=== PATIENT | female | born 1990 | race African-American/Black ===

== ENCOUNTER 2017-09-29 07:26 | Inpatient (IN) ==
[2017-09-29] MEDS ORDERED: TERBUTALINE 1 MG/1 ML VIAL SUBCUT ONE (08:59)
[2017-09-29] MEDS ORDERED: LACTATED RINGERS 1,000 ML IV SCH (09:00)
[2017-09-29 09:42] LABS: Apearance,Urine CLEAR (Clear); Bilirubin,Urine Negative (Negative); Blood, Urine Negative (Negative); Glucose,Urine (UA) Negative (Negative); Ketones,Urine Negative (Negative); Mucus,Urine Occasional /LPF (Occasional); Nitrite,Urine Negative (Negative); Protein,Urine 30 MG/DL; RBC,Urine 1 /HPF (0-4); Squamous Epithelial Cell,Urine Occasional /HPF (0-10); Urine Color Yellow (Yellow); WBC,Urine 1 /HPF (0-6)
[2017-09-29] MEDS ORDERED: MAGNESIUM SULF RIDER 100 ML IV ONE (10:21)
[2017-09-29] MEDS ORDERED: CALCIUM GLUCONATE 1,000 MG in SODIUM CHLORIDE 0.9% 100 ML IV PRN (10:21)
[2017-09-29 10:51] LABS: Basophils % 0.3 % (0.0-0.8); Eosinophils % 0.1 % (0.00-10.9); Hematocrit 31.7 VOL% (35.7-47.0); Immature Granulocytes % 0.4 %; Immature Granulocytes Absolute 0.04 #; Lymphocytes # 1.7 10*3/uL (1.4-4.0); Lymphocytes % 17.7 % (21.3-54.2); Mean Corpuscular HGB Conc 31.5 GM/DL (32-36); Mean Corpuscular Hemoglobin 23 PG (27-34); Mean Corpuscular Volume 74.2 FL (87-102); Mean Platelet Volume 12.3 FL (9.6-12.0); Monocytes # 0.6 10*3/uL (0.11-0.8); Monocytes % 6.2 % (1.7-12.7); Neutrophils # 7.3 10*3/uL (1.4-7.4); Neutrophils % 75.3 % (38.7-73.9); Platelet Count 173 T/CUMM (130-400); Red Blood Count 4.27 MC/CUMM (3.8-5.5); Red Cell Distribution Width 14.6 % (9.3-17.3); White Blood Count 9.6 T/CUMM (4-12)
[2017-09-29] MEDS: BETAMETH SODIUM PHOS/ACETATE 30 MG/5 ML VIAL IM SCH (11:14)
[2017-09-29 11:19] LABS: Alanine Aminotransferase 12 U/L (13-56); Albumin 2.4 G/DL (3.4-5.0); Alkaline Phosphatase 92 U/L (45-117); Aspartate Amino Transferase 11 U/L (0-37); Bilirubin,Total < 0.39 MG/DL (0.2-1.0); Blood Urea Nitrogen 8 MG/DL (7-18); Calcium 7.6 MG/DL (8.5-10.1); Glucose 80 MG/DL (74-106); Osmolality,Calculated 271.7 MOS/KG (273-304); Potassium 3.7 MMOL/L (3.5-5.1); Sodium 138 MMOL/L (136-145); Total Protein 5.9 G/DL (6.4-8.3)
[2017-09-29] MEDS: LACTATED RINGERS 1,000 ML IV SCH (11:30)
[2017-09-29] MEDS: AMPICILLIN INJ 2,000 MG in SODIUM CHLORIDE 0.9% 100 ML IV SCH ×3 (11:36→23:38)
[2017-09-29] MEDS: MAGNESIUM SULF DRIP 40 GM/1,000 ML ML IV SCH (11:43)
[2017-09-29 18:07] LABS: Apearance,Urine CLEAR (Clear); Bacteria,Urine Occasional /HPF (Few); Bilirubin,Urine Negative (Negative); Blood, Urine Negative (Negative); Glucose,Urine (UA) Negative (Negative); Ketones,Urine 5 mg/dL (Negative); Mucus,Urine Occasional /LPF (Occasional); Nitrite,Urine Negative (Negative); Protein,Urine Negative; RBC,Urine <1 /HPF (0-4); Squamous Epithelial Cell,Urine Occasional /HPF (0-10); Urine Color Straw (Yellow); Urine Specific Gravity 1.012 (1.001-1.035); Urine Urobilinogen < 2.0 EU/DL (0.2-1.0); WBC,Urine <1 /HPF (0-6)
[2017-09-29] MEDS ORDERED: BUTORPHANOL 1 MG/ML VIAL IV PRN (19:32)
[2017-09-29] MEDS ORDERED: ONDANSETRON 4 MG/2 ML VIAL IV PRN (19:33)
[2017-09-30] MEDS: LACTATED RINGERS 1,000 ML IV SCH ×2 (03:10→20:00)
[2017-09-30] MEDS: AMPICILLIN INJ 2,000 MG in SODIUM CHLORIDE 0.9% 100 ML IV SCH ×2 (05:15→10:39)
[2017-09-30] MEDS: MAGNESIUM SULF DRIP 40 GM/1,000 ML ML IV SCH (07:33)
[2017-09-30] MEDS: BETAMETH SODIUM PHOS/ACETATE 30 MG/5 ML VIAL IM SCH (11:29)
[2017-09-30] MEDS: NIFEdipine 10 MG CAPSULE PO SCH ×2 (16:50→22:29)
[2017-09-30] MEDS ORDERED: ACETAMINOPHEN 325 MG TABLET PO PRN (19:43)
[2017-10-01] MEDS: NIFEdipine 10 MG CAPSULE PO SCH (04:03)
[2017-10-01] MEDS: LACTATED RINGERS 1,000 ML IV SCH (04:04)
[2017-10-01 09:29] VITALS: BP 126/83
== END 2017-10-01 09:50 | disposition home or self-care (01) | DRG 563 ==
LOC: N.LDOUT 07:26 → N.LD 07:28 → N.OB 09-30 17:23
PROVIDERS: ADMIT Specialist; ATTEND Specialist

== ENCOUNTER 2017-10-06 06:15 | Inpatient (IN) ==
[2017-10-06 07:11] LABS: Apearance,Urine Slightly Hazy (Clear); Bilirubin,Urine Negative (Negative); Blood, Urine Negative (Negative); Glucose,Urine (UA) Negative (Negative); Ketones,Urine Negative (Negative); Mucus,Urine Occasional /LPF (Occasional); Nitrite,Urine Negative (Negative); Protein,Urine 100 MG/DL; RBC,Urine 2 /HPF (0-4); Squamous Epithelial Cell,Urine Occasional /HPF (0-10); Urine Color Yellow (Yellow); Urine Specific Gravity 1.019 (1.001-1.035); Urine Urobilinogen < 2.0 EU/DL (0.2-1.0); WBC,Urine 7 /HPF (0-6)
[2017-10-06] MEDS: NIFEdipine 10 MG CAPSULE PO SCH ×4 (09:17→17:15)
[2017-10-06] MEDS ORDERED: LACTATED RINGERS 500 ML IV PRN (13:25)
[2017-10-06] MEDS ORDERED: BUTORPHANOL 2 MG/ML VIAL IV PRN (13:25)
[2017-10-06] MEDS ORDERED: MEPERIDINE 50 MG/1 ML VIAL IV PRN (13:25)
[2017-10-06] MEDS ORDERED: ONDANSETRON 4 MG/2 ML VIAL IV PRN (13:25)
[2017-10-06] MEDS ORDERED: AMPICILLIN INJ 2,000 MG in SODIUM CHLORIDE 0.9% 100 ML IV ONE (13:31)
[2017-10-06] MEDS: LACTATED RINGERS 1,000 ML IV SCH ×2 (13:45→22:20)
[2017-10-06 13:52] LABS: Basophils % 0.3 % (0.0-0.8); Eosinophils % 0.1 % (0.00-10.9); Hematocrit 33.8 VOL% (35.7-47.0); Hemoglobin 11.3 GM/DL (12.0-16.0); Immature Granulocytes % 0.6 %; Immature Granulocytes Absolute 0.08 #; Lymphocytes # 2.3 10*3/uL (1.4-4.0); Lymphocytes % 15.9 % (21.3-54.2); Mean Corpuscular HGB Conc 33.4 GM/DL (32-36); Mean Corpuscular Hemoglobin 23 PG (27-34); Mean Corpuscular Volume 69.8 FL (87-102); Monocytes # 0.9 10*3/uL (0.11-0.8); Monocytes % 6.1 % (1.7-12.7); Neutrophils # 11.2 10*3/uL (1.4-7.4); Platelet Count 212 T/CUMM (130-400); Red Blood Count 4.84 MC/CUMM (3.8-5.5); Red Cell Distribution Width 14.7 % (9.3-17.3); White Blood Count 14.5 T/CUMM (4-12)
[2017-10-06 14:03] LABS: INR 0.9; PT Patient Result 9.4 SECS; Partial Thromboplastin Time 28.3 SECS (0-40)
[2017-10-06 14:14] LABS: Albumin 2.6 G/DL (3.4-5.0); Bilirubin,Total 0.4 MG/DL (0.2-1.0); Calcium 8.2 MG/DL (8.5-10.1); Osmolality,Calculated 269.1 MOS/KG (273-304); Potassium 3.9 MMOL/L (3.5-5.1); Total Protein 6.6 G/DL (6.4-8.3); Uric Acid 5.6 MG/DL (2.6-6.0)
[2017-10-06] MEDS: AMPICILLIN INJ 1,000 MG in SODIUM CHLORIDE 0.9% 100 ML IV SCH ×2 (17:16→20:45)
[2017-10-06] MEDS ORDERED: NIFEdipine 10 MG CAPSULE PO SCH (21:00)
[2017-10-06] MEDS ORDERED: CITRIC ACID/SODIUM CITRATE 30 ML UDCUP PO ONE (23:33)
[2017-10-06] MEDS ORDERED: FAMOTIDINE 20 MG/2 ML VIAL IV ONE (23:34)
[2017-10-06] MEDS ORDERED: ePHEDrine 50 MG/ML AMP IV ONE (23:34)
[2017-10-06] MEDS ORDERED: LIDOCAINE 1% 50 ML VIAL ONE (23:43)
[2017-10-06] MEDS ORDERED: METHYLERGONOVINE 0.2 MG/1 ML AMP ONE (23:44)
[2017-10-06] MEDS ORDERED: miSOPROStol 200 MCG TABLET ONE (23:44)
[2017-10-06] MEDS ORDERED: OXYTOCIN/LR 20 UNIT/1,000 ML BAG IV ONE (23:44)
[2017-10-06] MEDS ORDERED: fentaNYL 2 MCG/ROPIV 0.2% EPID 150 ML EPIDURAL SCH (23:45)
[2017-10-06] MEDS ORDERED: TRANEXAMIC ACID 1,000 MG/10 ML VIAL ONE (23:52)
[2017-10-07] MEDS ORDERED: HYDROCORTISONE 2.5% RECTAL CREAM 30 GM TUBE TOP PRN (00:06)
[2017-10-07] MEDS ORDERED: OXYTOCIN/LR 20 UNIT/1,000 ML BAG IV ONE ×2 (00:06→01:18)
[2017-10-07] MEDS ORDERED: ACETAMINOPHEN 325 MG TABLET PO PRN (00:06)
[2017-10-07] MEDS ORDERED: DIPH/TET/ACEL PERT BOOSTER VACCINE 0.5 ML VIAL IM ONE (00:06)
[2017-10-07] MEDS ORDERED: BISACODYL 10 MG SUPP RECTAL PRN (00:06)
[2017-10-07] MEDS ORDERED: ONDANSETRON 4 MG/2 ML VIAL IV PRN (00:06)
[2017-10-07] MEDS ORDERED: WITCH HAZEL PADS 100/JAR TOP PRN (00:06)
[2017-10-07] MEDS ORDERED: RHO(D) IMMUNE GLOBULIN 300 MCG SYRINGE IM ONE (00:06)
[2017-10-07] MEDS ORDERED: BENZOCAINE 20%/MENTHOL 0.5% SPRAY 56 GM CAN TOP PRN (00:06)
[2017-10-07] MEDS ORDERED: LANOLIN 50% CREAM 0.3 OZ TUBE TOP PRN (00:06)
[2017-10-07] MEDS ORDERED: MEASLES/MUMPS/RUBELLA VACCINE 0.5 ML VIAL SUBCUT ONE (00:06)
[2017-10-07] MEDS ORDERED: miSOPROStol 200 MCG TABLET ONE (00:30)
[2017-10-07 04:57] LABS: Basophils # 0.1 10*3/uL (0.0-0.2); Basophils % 0.3 % (0.0-0.8); Eosinophils % 0.1 % (0.00-10.9); Hematocrit 29.8 VOL% (35.7-47.0); Immature Granulocytes % 0.5 %; Immature Granulocytes Absolute 0.09 #; Mean Corpuscular HGB Conc 33.6 GM/DL (32-36); Mean Corpuscular Hemoglobin 24 PG (27-34); Mean Corpuscular Volume 70.4 FL (87-102); Mean Platelet Volume 12.4 FL (9.6-12.0); Monocytes # 1.1 10*3/uL (0.11-0.8); Monocytes % 5.6 % (1.7-12.7); Neutrophils # 16.6 10*3/uL (1.4-7.4); Neutrophils % 83.5 % (38.7-73.9); Platelet Count 185 T/CUMM (130-400); Red Blood Count 4.23 MC/CUMM (3.8-5.5); Red Cell Distribution Width 14.7 % (9.3-17.3); White Blood Count 19.9 T/CUMM (4-12)
[2017-10-07] MEDS: IBUPROFEN 800 MG TABLET PO PRN (07:37)
[2017-10-07] MEDS: oxyCODONE/ACETAMINOPHEN 5-325 MG TABLET PO PRN ×3 (07:38→23:21)
[2017-10-07] MEDS: DOCUSATE SODIUM 100 MG CAPSULE PO SCH ×2 (09:10→21:44)
[2017-10-08] MEDS: oxyCODONE/ACETAMINOPHEN 5-325 MG TABLET PO PRN ×2 (09:45→15:42)
[2017-10-08] MEDS: DOCUSATE SODIUM 100 MG CAPSULE PO SCH ×2 (09:46→21:01)
[2017-10-08] MEDS: IBUPROFEN 800 MG TABLET PO PRN (15:42)
[2017-10-09] MEDS: IBUPROFEN 800 MG TABLET PO PRN (05:36)
[2017-10-09] MEDS: DOCUSATE SODIUM 100 MG CAPSULE PO SCH (08:38)
[2017-10-09 15:59] VITALS: BP 117/84
== END 2017-10-09 17:40 | disposition home or self-care (01) | DRG 560 ==
LOC: N.LDOUT 06:15 → N.LD 06:17 → N.OB 10-07 02:00
PROVIDERS: ADMIT Obstetrics & Gynecology; ATTEND Obstetrics & Gynecology

== ENCOUNTER 2018-12-19 05:23 | Inpatient (IN) ==
[2018-12-19] MEDS ORDERED: MEPERIDINE 50 MG/1 ML VIAL IV PRN (05:35)
[2018-12-19] MEDS ORDERED: ONDANSETRON 4 MG/2 ML VIAL IV PRN ×2 (05:35→08:58)
[2018-12-19] MEDS ORDERED: BUTORPHANOL 2 MG/ML VIAL IV PRN (05:35)
[2018-12-19] MEDS ORDERED: LACTATED RINGERS 1,000 ML IV SCH ×2 (06:00→08:00)
[2018-12-19] MEDS ORDERED: OXYTOCIN/LR 20 UNIT/1,000 ML BAG IV SCH (06:00)
[2018-12-19 06:14] LABS: Basophils % 0.3 % (0.0-0.8); Eosinophils % 0.3 % (0.00-10.9); Hematocrit 29.6 VOL% (35.7-47.0); Hemoglobin 8.8 GM/DL (12.0-16.0); Immature Granulocytes % 0.7 %; Immature Granulocytes Absolute 0.07 #; Lymphocytes % 19.9 % (21.3-54.2); Mean Corpuscular HGB Conc 29.7 GM/DL (32-36); Monocytes % 6.3 % (1.7-12.7); Neutrophils % 72.5 % (38.7-73.9); Platelet Count 246 T/CUMM (130-400); Red Blood Count 4.29 MC/CUMM (3.8-5.5); Red Cell Distribution Width 16.1 % (9.3-17.3); White Blood Count 10.1 T/CUMM (4-12)
[2018-12-19 06:25] LABS: Alanine Aminotransferase 10 U/L (13-56); Albumin 2.5 G/DL (3.4-5.0); Alkaline Phosphatase 86 U/L (45-117); Aspartate Amino Transferase 13 U/L (0-37); Bilirubin,Total < 0.39 MG/DL (0.2-1.0); Blood Urea Nitrogen 7 MG/DL (7-18); Calcium 8.3 MG/DL (8.5-10.1); Glucose 78 MG/DL (74-106); Osmolality,Calculated 273.5 MOS/KG (273-304); Total Protein 6.9 G/DL (6.4-8.3)
[2018-12-19 06:30] LABS: Hypochromasia 1+; Platelet Estimate Adequate
[2018-12-19] MEDS ORDERED: FAMOTIDINE 20 MG/2 ML VIAL IV ONE (07:41)
[2018-12-19] MEDS ORDERED: CITRIC ACID/SODIUM CITRATE 30 ML UDCUP PO ONE (07:41)
[2018-12-19] MEDS ORDERED: LACTATED RINGERS 1,000 ML IV ONE (07:41)
[2018-12-19] MEDS ORDERED: ePHEDrine 50 MG/ML AMP IV PRN (07:41)
[2018-12-19] MEDS ORDERED: NALOXONE 0.4 MG/ML VIAL IV PRN (07:42)
[2018-12-19] MEDS ORDERED: PROMETHAZINE 25 MG/1 ML VIAL IM ONE (07:42)
[2018-12-19] MEDS ORDERED: hydrOXYzine HCL 25 MG/1 ML VIAL IM PRN (07:42)
[2018-12-19] MEDS ORDERED: diphenhydrAMINE 50 MG/1 ML VIAL IV PRN ×2 (07:42)
[2018-12-19] MEDS ORDERED: fentaNYL 2 MCG/ROPIV 0.2% EPID 100 ML EPIDURAL SCH (08:00)
[2018-12-19] MEDS ORDERED: ACETAMINOPHEN 325 MG TABLET PO PRN (08:58)
[2018-12-19] MEDS ORDERED: RHO(D) IMMUNE GLOBULIN 300 MCG SYRINGE IM ONE (08:58)
[2018-12-19] MEDS ORDERED: BISACODYL 10 MG SUPP RECTAL PRN (08:58)
[2018-12-19] MEDS ORDERED: HYDROCORTISONE 2.5% RECTAL CREAM 30 GM TUBE TOP PRN (08:58)
[2018-12-19] MEDS ORDERED: WITCH HAZEL PADS 100/JAR TOP PRN (08:58)
[2018-12-19] MEDS ORDERED: LANOLIN 50% CREAM 0.3 OZ TUBE TOP PRN (08:58)
[2018-12-19] MEDS ORDERED: MEASLES/MUMPS/RUBELLA VACCINE 0.5 ML VIAL SUBCUT ONE (08:58)
[2018-12-19] MEDS ORDERED: OXYTOCIN/LR 20 UNIT/1,000 ML BAG IV ONE (08:58)
[2018-12-19] MEDS ORDERED: BENZOCAINE 20%/MENTHOL 0.5% SPRAY 56 GM CAN TOP PRN (08:58)
[2018-12-19] MEDS ORDERED: DIPH/TET/ACEL PERT BOOSTER VACCINE 0.5 ML VIAL IM ONE (08:58)
[2018-12-19] MEDS: IBUPROFEN 800 MG TABLET PO PRN (17:42)
[2018-12-19] MEDS: oxyCODONE/ACETAMINOPHEN 5-325 MG TABLET PO PRN (17:44)
[2018-12-19] MEDS: DOCUSATE SODIUM 100 MG CAPSULE PO SCH (20:40)
[2018-12-20] MEDS: IBUPROFEN 800 MG TABLET PO PRN (00:05)
[2018-12-20] MEDS: oxyCODONE/ACETAMINOPHEN 5-325 MG TABLET PO PRN ×2 (00:05→13:17)
[2018-12-20 05:26] LABS: Basophils % 0.4 % (0.0-0.8); Eosinophils # 0.1 10*3/uL (0.0-0.87); Eosinophils % 0.8 % (0.00-10.9); Hematocrit 25.6 VOL% (35.7-47.0); Hemoglobin 7.6 GM/DL (12.0-16.0); Immature Granulocytes % 0.6 %; Immature Granulocytes Absolute 0.06 #; Lymphocytes # 2.4 10*3/uL (1.4-4.0); Lymphocytes % 22.8 % (21.3-54.2); Mean Corpuscular HGB Conc 29.7 GM/DL (32-36); Mean Corpuscular Volume 69.2 FL (87-102); Mean Platelet Volume 12.5 FL (9.6-12.0); Monocytes % 6.7 % (1.7-12.7); Neutrophils % 68.7 % (38.7-73.9); Platelet Count 263 T/CUMM (130-400); Red Cell Distribution Width 15.9 % (9.3-17.3); White Blood Count 10.5 T/CUMM (4-12)
[2018-12-20 05:44] LABS: Hypochromasia 1+; Platelet Estimate Adequate
[2018-12-20] MEDS: DOCUSATE SODIUM 100 MG CAPSULE PO SCH ×2 (08:43→21:13)
[2018-12-20] MEDS: FERROUS SULFATE 325 MG TABLET PO SCH ×4 (08:43→21:13)
[2018-12-20] MEDS: PENICILLIN VK 500 MG TABLET PO SCH ×3 (10:14→19:11)
[2018-12-21] MEDS: PENICILLIN VK 500 MG TABLET PO SCH ×3 (06:15→12:15)
[2018-12-21 07:22] VITALS: BP 129/76
[2018-12-21] MEDS: DOCUSATE SODIUM 100 MG CAPSULE PO SCH (10:00)
[2018-12-21] MEDS: IBUPROFEN 800 MG TABLET PO PRN (10:00)
[2018-12-21] MEDS: FERROUS SULFATE 325 MG TABLET PO SCH (10:00)
[2018-12-21] MEDS: oxyCODONE/ACETAMINOPHEN 5-325 MG TABLET PO PRN (10:01)
== END 2018-12-21 15:05 | disposition home or self-care (01) | DRG 560 ==
LOC: N.LDOUT 05:23 → N.LD 05:26 → N.OB 11:47
PROVIDERS: ADMIT Specialist; ATTEND Specialist

== ENCOUNTER 2020-06-03 11:11 | Observation (INO) ==
[2020-06-03 11:50] LABS: Basophils % 0.4 % (0.0-0.8); Eosinophils % 0.6 % (0.00-10.9); Hematocrit 35.9 VOL% (35.7-47.0); Hemoglobin 11.2 GM/DL (12.0-16.0); Immature Granulocytes % 0.3 %; Immature Granulocytes Absolute 0.02 #; Lymphocytes # 1.9 10*3/uL (1.4-4.0); Lymphocytes % 27.3 % (21.3-54.2); Mean Corpuscular HGB Conc 31.2 GM/DL (32-36); Mean Corpuscular Volume 68.3 FL (87-102); Monocytes % 10.3 % (1.7-12.7); Neutrophils % 61.1 % (38.7-73.9); Platelet Count 256 T/CUMM (130-400); Red Blood Count 5.26 MC/CUMM (3.8-5.5); Red Cell Distribution Width 17.3 % (9.3-17.3); White Blood Count 7.1 T/CUMM (4-12)
[2020-06-03 12:10] LABS: Albumin 3.5 G/DL (3.4-5.0); Bilirubin,Total 0.5 MG/DL (0.2-1.0); Calcium 8.3 MG/DL (8.5-10.1); Osmolality,Calculated 273.7 MOS/KG (273-304); Potassium 3.9 MMOL/L (3.5-5.1); Total Protein 7.5 G/DL (6.4-8.3)
[2020-06-03 12:11] LABS: Band Neutrophils 13 % (0-10); Lymphocytes 27 % (20-55); Segmented Neutrophils 50 % (50-85); Total Cells Counted 100
[2020-06-03 12:12] LABS: Anisocytosis 1+; Hypochromasia Slight; Ovalocytes Few; Platelet Estimate Normal; Smudge Cells Few; Tear Drop Cells Few
[2020-06-03] MEDS ORDERED: ASPIRIN 325 MG TABLET PO STA (12:37)
[2020-06-03] MEDS ORDERED: DEXTROSE 50% 25 GM/50 ML VIAL IV PRN (14:47)
[2020-06-03] MEDS ORDERED: GLUCAGON 1 MG VIAL IM PRN (14:47)
[2020-06-03] MEDS ORDERED: ONDANSETRON 4 MG/2 ML VIAL IV PRN (14:47)
[2020-06-03] MEDS ORDERED: ACETAMINOPHEN 325 MG TABLET PO PRN (14:47)
[2020-06-03] MEDS: SODIUM CHLORIDE 0.45% 1,000 ML IV SCH (18:02)
[2020-06-03] MEDS: ENOXAPARIN 40 MG/0.4 ML SYRINGE SUBCUT SCH (18:02)
[2020-06-04 05:13] LABS: Basophils # 0.1 10*3/uL (0.0-0.2); Basophils % 1.2 % (0.0-0.8); Eosinophils # 0.1 10*3/uL (0.0-0.87); Hemoglobin 10.3 GM/DL (12.0-16.0); Immature Granulocytes % 0.3 %; Immature Granulocytes Absolute 0.02 #; Lymphocytes # 1.7 10*3/uL (1.4-4.0); Lymphocytes % 28.4 % (21.3-54.2); Mean Corpuscular HGB Conc 31.2 GM/DL (32-36); Mean Corpuscular Volume 68.5 FL (87-102); Monocytes % 14.7 % (1.7-12.7); Neutrophils % 53.4 % (38.7-73.9); Platelet Count 198 T/CUMM (130-400); Red Blood Count 4.82 MC/CUMM (3.8-5.5); Red Cell Distribution Width 16.9 % (9.3-17.3); White Blood Count 5.9 T/CUMM (4-12)
[2020-06-04 05:51] LABS: Albumin 2.8 G/DL (3.4-5.0); Bilirubin,Total 0.5 MG/DL (0.2-1.0); Calcium 7.9 MG/DL (8.5-10.1); Osmolality,Calculated 275.5 MOS/KG (273-304); Potassium 3.7 MMOL/L (3.5-5.1); Risk Ratio 3.79; Thyroid Stimulating Hormone 1.54 uIU/ml (0.358-3.74); Total Protein 6.5 G/DL (6.4-8.3); VLDL CHOLESTEROL 18.8 MG/DL
[2020-06-04 05:55] LABS: Band Neutrophils 1 % (0-10); Eosinophils 1 % (0-10); Hypochromasia Slight; Lymphocytes 29 % (20-55); Microcytosis 2+; Platelet Estimate Normal; Segmented Neutrophils 60 % (50-85); Total Cells Counted 100
[2020-06-04 05:56] LABS: Ovalocytes Few
[2020-06-04] MEDS: SODIUM CHLORIDE 0.45% 1,000 ML IV SCH ×3 (06:38→15:54)
[2020-06-04] MEDS: PANTOPRAZOLE 40 MG TABLET PO SCH (08:05)
[2020-06-04] MEDS: ENOXAPARIN 40 MG/0.4 ML SYRINGE SUBCUT SCH (18:07)
[2020-06-05] MEDS: SODIUM CHLORIDE 0.45% 1,000 ML IV SCH ×2 (00:03→12:41)
[2020-06-05 06:07] LABS: INR 1.1; PT Patient Result 11.4 SECS (9.8-11.9)
[2020-06-05 06:14] LABS: Albumin 2.6 G/DL (3.4-5.0); Bilirubin,Total 0.5 MG/DL (0.2-1.0); Calcium 7.6 MG/DL (8.5-10.1); Osmolality,Calculated 273.5 MOS/KG (273-304); Potassium 4.1 MMOL/L (3.5-5.1); Total Protein 6.2 G/DL (6.4-8.3)
[2020-06-05] MEDS: PANTOPRAZOLE 40 MG TABLET PO SCH (08:25)
[2020-06-05 11:59] VITALS: BP 115/60
== END 2020-06-05 14:05 | disposition home or self-care (01) ==
LOC: N.EDINP 11:11 → N.ED 11:11 → SUATTDRO 14:47 → N.2E 17:12
PROVIDERS: ADMIT Internal Medicine Nephrology; ATTEND Internal Medicine